=== PATIENT | female | born 1990 | race Caucasian/White ===

== ENCOUNTER 2024-02-06 21:55 | Emergency (ER) | payer BC, SELFPAY ==
[2024-02-06 21:58] VITALS: BP 97/70
[2024-02-06 22:22] VITALS: BMI 19.4
--- NOTE | 2024-02-06 22:58 | ED.SKININJ ---
HPI-Injury
General
Chief Complaint: Skin Problem
Source: patient
Exam Limitations: none
Time Seen by Provider: 02/06/24 22:51
Nursing documentation reviewed up to this point in time: agreed with
History of Present Illness-Injury
Initial Injury comments:
33-year-old female presents with an abscess under her left axilla. She has had this before. She was diagnosed with hidradenitis suppurativa by her family doctor last week. Denies fever, chills, nausea or vomiting. She works as a nurse. She
states that 3 days it has been gradually enlarging.
Phy Exam
General Physical Exam
General Presentation: well appearing and no apparent distress
General Skin: warm and dry
General Habitus: normal
General Mental: alert
General Hydration: appears well hydrated
ENT Exam
ENT Exam: EOMI, pharynx normal, neck supple and normocephalic
Eye Exam
Eye Exam: PERRL, cornea clear and conjunctiva normal
Cardiovascular Exam
Cardiovascular Exam: regular rate/rhythm, no edema, no murmur and normal peripheral pulses
Pulmonary Exam
Pulmonary Exam: lungs clear, no respiratory distress, no rales, no crackles, no rhonchi, no stridor, no wheezing and no cough
Gastrointestinal Exam
Gastrointestinal Exam: normal bowel sounds, non tender, soft, no organomegaly, no pulsatile mass and non distended
Neurological Exam
Neurological Exam: alert, oriented x3, no motor deficits and speech normal
Musculoskeletal Exam
Musculoskeletal Exam: full ROM and no edema
Skin Exam
Skin Exam: normal color, warm/dry, no rash, no petechia, redness, tenderness (Left axilla. There is a golf ball size mass of fluctuance. Patient normally shaves her armpits.) and other
Psychiatric Exam
Psychiatric Exam: normal mood/affect
Course
Orders/Labs/Results
Orders:
Orders
02/06/24 22:57
Oxycodone/Acetaminophen [Percocet 5/325] 1 tablet PO NOW STA
02/06/24 23:59
Wound Culture [Wound/Abscess/Other Culture] Urgent
GINA Source: Axilla
Specimen Description:
Date Specimen was Collected: 02/06/24
Time Specimen was Collected: 23:48
Comment: left
02/07/24 00:00
Sulfamethox./Trimethoprim Ds [Bactrim Ds 800 mg/160 mg] 1 tablet PO NOW STA
Vital Signs
Initial and Last Documented VS:
Initial Vital Signs
Temp Pulse Resp BP Pulse Ox
99 F 106 24 97/70 100
02/06/24 21:58 02/06/24 21:58 02/06/24 21:58 02/06/24 21:58 02/06/24 21:58
Last Documented Vital Signs
Temp Pulse Resp BP Pulse Ox
99 F 76 16 96/50 98
02/06/24 21:58 02/07/24 00:50 02/07/24 00:50 02/07/24 00:50 02/07/24 00:50
Procedures
Incision/Drainage/Joint Aspiration
Left Arm:
Anethesia: 1% Lidocaine with Epi
Preparation: cleaned with Betadine
Type of procedure: incise and drain
Nature of site: abscess
Description of abscess: greater than 3cm, complex, involved incision and drainage
Loculations broken up: Yes
How much fluid was obtained?: number in mls (25)
Fluid description: purulent
Treatment: left open for drainage and packed with gauze
Additional information:
Patient tolerated procedure well with no immediate adverse effects. Prior to procedure and ultrasound was used for ekxib-ee-kweg evaluation. There was a large area of void, consistent with an abscess.
*Critical Care Note
Total Time (30-74mins, 75-104mins- exclusive of procedures): Not Applicable
Update Note
Update Note:
Typically I do not drain hidradenitis suppurativa. This appears more fluctuant and discrete. Patient is in a tremendous amount of pain. This is approximately the size of a golf ball. Patient consented to its removal.
ED Attending Note
-
Portions of this chart may have been created with voice recognition software.� Occasional wrong word or��sound alike� substitutions may have occurred due to the inherent limitations of voice recognition software.
Discharge Plan
Departure
Patient Disposition: Home (Routine Discharge)
Date of Disposition: 02/07/24
Time of Disposition: 00:14
Patient with high blood pressure during this ER visit?: No
Condition: Good
Discharge Problem:
Abscess
Instructions: Wound Care (DC), Skin Abscess
Prescriptions:
New
oxycodone-acetaminophen [Percocet] 5-325 mg tablet
1 tab PO Q6HPRN PRN (Reason: pain) Qty: 5 0RF
sulfamethoxazole-trimethoprim [Bactrim DS] 800-160 mg tablet
1 tab PO BID 10 Days Qty: 20 0RF
Referrals:
Cuca Torres MD [Family Provider] -
Activity Restrictions/Additional Instructions:
Your prescriptions were sent electronically to the pharmacy that you specified.
It was a pleasure meeting you and taking part in your care. We hope for your continued healing and wellness.
Please read discharge instructions in their entirety. However, they are for general education and may not describe your exact diagnosis at discharge. Information on your ER visit and medical conditions were discussed with you along with appropriate
follow up information...
If indicated, please take your medications as instructed and indicated on discharge paperwork.
Please schedule a follow up appointment as directed. Call to schedule an appointment
Please return to the emergency department with ANY change in, persisting, or worsening of symptoms. If any of your symptoms do not improve, or persist, or become more severe within 6-12 hours, please return to the emergency department for further
care.
Please return to the emergency department if you develop a headache, neck pain/stiffness, fever greater than 100.4F, chest pain, shortness of breath, persistent nausea, vomiting, slurred speech, difficulty walking, numbness/tingling, weakness, signs
of infection or any other symptoms that are worrisome to you.
If you have any questions or concerns please do not hesitate to call the Hospital at or E-mail me directly at [email or web address]
Interventions
Interventions:
*Risk Screen - Suicide Last Done: 02/06/24 21:58
*General Assessment Last Done: 02/07/24 00:50
*Neglect/Abuse Screening Last Done: 02/06/24 21:58
ED- Fall Risk Assessment Last Done: 02/07/24 00:50
*ED COVID-19 Vaccine History Last Done: 02/07/24 00:50
*Nursing Disposition Last Done: 02/07/24 00:50
ED-Skin Assessment Last Done: 02/06/24 22:22
Discharge Date and Time
Discharge Date/Time: 02/07/24 00:50
Print Language: MOLDOVAN
[2024-02-06] MEDS: PERCOCET 5/325 1 TABLET PO (23:15)
[2024-02-07] MEDS: BACTRIM DS 800 MG/160 MG 1 TABLET PO (00:40)
[2024-02-07 00:50] VITALS: BP 96/50
== END 2024-02-07 00:50 | disposition home or self-care (01) ==
LOC: EMR 21:55
PROVIDERS: EMERGENCY PHYSICIAN Student in an Organized Health Care Education/Training Program; FAMILY PHYSICIAN Internal Medicine
DX: L02.412 Cutaneous abscess of left axilla (principal)
CPT/HCPCS: 99283; 10061; 87070; 87147; 87186; 87205